=== PATIENT | female | born 1990 | race Caucasian/White ===

== ENCOUNTER 2024-05-28 00:16 | Emergency (ER) | payer SELFPAY ==
[~2024-05-28] VITALS: Ht 165.1 cm; Wt 85.4 kg
[2024-05-28 00:21] VITALS: BP 154/82; TEMP 98.8; O2SAT 98
[2024-05-28] MEDS ORDERED: IBUP200C25 PO (00:22)
== END 2024-05-28 03:02 | disposition left against medical advice (07) ==
LOC: M ED 00:16
DX: Z53.21 Procedure and treatment not carried out due to patient leaving prior to being seen by health care provider (principal)

== ENCOUNTER → 2025-01-13 | Outpatient (CLI) | payer OTHER ==
[~2025-01-13] MED LIST: IBUP200C25 PO
[2025-01-13 12:41] LABS: PLATELET COUNT, AUTOMATED 354 10^3/uL (150-450)
[2025-01-13 13:31] LABS: ALT/SGPT 24 U/L (7.0-40); AST/SGOT 21 U/L (<34); CALCIUM LEVEL 8.9 MG/DL (8.5-10.1); CARBON DIOXIDE LEVEL 25 MMOL/L (20-31); CHLORIDE LEVEL 106 MMOL/L (98-107); CHOLESTEROL LEVEL 200 MG/DL (<200); CHOLESTEROL RISK RATIO 2.80 (<5); CREATININE FOR GFR 0.65 MG/DL (0.55-1.30); GLOMERULAR FILTRATION RATE > 90.0 (>60); IRON (FE) 97 UG/DL (50-170); LDL CHOLESTEROL 116.4 MG/DL (<100); NON-HDL-C 128.6 MG/DL; POTASSIUM SERUM 4.6 MMOL/L (3.5-5.1); SODIUM LEVEL 140 MMOL/L (136-145); TRIGLYCERIDES LEVEL 61 MG/DL (<150)
[2025-01-13 13:32] LABS: VITAMIN B12 LEVEL 689 PG/ML (211-911)
[2025-01-13 13:33] LABS: FREE T4 1.12 NG/DL (0.89-1.76)
[2025-01-13 13:55] LABS: Trichomonas vaginalis (AMP) NOT DETECTED (NEGATIVE)
[2025-01-13 14:06] LABS: HIV 1&2 SCREEN NEGATIVE (NEGATIVE)
[2025-01-13 14:20] LABS: GC DNA AMPLIFICATION NEGATIVE (NEGATIVE)
[2025-01-13 14:20] LABS: ESTIMATED AVERAGE GLUCOSE 103.0 MG/DL (60-110)
== END ==
LOC: M LAB 11:01
PROVIDERS: ATTEND Internal Medicine
DX: Z00.00 Encounter for general adult medical examination without abnormal findings (principal); R55 Syncope and collapse; E66.9 Obesity, unspecified

== ENCOUNTER → 2025-03-31 | Outpatient (CLI) | payer OTHER | LOC: M SOG 07:49 | PROVIDERS: ATTEND Orthopaedic Surgery | DX: M25.552 Pain in left hip (principal) ==